=== PATIENT | male | born 1975 | race Caucasian/White ===

== ENCOUNTER 2018-06-01 19:23 | Emergency (ER) | payer BC, OTHER ==
[2018-06-01] MEDS ORDERED: TETANUS & DIPHTHERIA TOX,ADULT 0.5 ML VIAL ONE (20:04)
--- NOTE | 2018-06-01 20:27 | ER ---
Nurse's Notes [facility] Name: Kilo Aquino Age: 43 yrs Sex: Male : 1975 Arrival Date: 06/01/2018 Time: 19:28 Bed 2 Private MD: Diagnosis: Laceration without foreign body of right hand-5th finger shave injury Presentation: 06/01 19:50 Presenting complaint: Patient states: he was slicing potatoes and cut his R pinky aa1 finger on a mandolin. Minor partial amputation noted to pad of R pinky finger. CMS intact. Transition of care: patient was not received from another setting of care. Onset of symptoms was June 01, 2018. Risk Assessment: Do you want to hurt yourself or someone else? Patient reports no desire to harm self or others. Initial Sepsis Screen: Does the patient meet any 2 criteria? No. Patient's initial sepsis screen is negative. Does the patient have a suspected source of infection? Yes: Skin breakdown/wound. Care prior to arrival: None. 19:50 Method Of Arrival: Ambulatory aa1 19:50 Acuity: IRINA 4 aa1 Historical: - Allergies: 19:53 No Known Allergies; aa1 - Home Meds: 19:53 None [Active]; aa1 - PMHx: 19:53 None; aa1 - PSHx: 19:53 None; aa1 - Immunization history:: Last tetanus immunization: unknown. - Social history:: Smoking status: Patient/guardian denies using tobacco. - Ebola Screening: : No symptoms or risks identified at this time. - Family history:: not pertinent. Screenin:50 Abuse screen: Denies threats or abuse. Denies injuries from another. Nutritional aa1 screening: No deficits noted. Tuberculosis screening: No symptoms or risk factors identified. Fall Risk None identified. Assessment: 19:50 General: Appears in no apparent distress. comfortable, Behavior is calm, cooperative, aa1 appropriate for age. Pain: Complains of pain in right little finger. Neuro: Level of Consciousness is awake, alert, obeys commands, Oriented to person, place, time, situation, Moves all extremities. Full function. Respiratory: Airway is patent Respiratory effort is even, unlabored, Respiratory pattern is regular, symmetrical. GI: No signs and/or symptoms were reported involving the gastrointestinal system. : No signs and/or symptoms were reported regarding the genitourinary system. EENT: No signs and/or symptoms were reported regarding the EENT system. Derm: Skin is intact, is healthy with good turgor, Skin is pink, warm \T\ dry. Musculoskeletal: Circulation, motion, and sensation intact. Capillary refill < 3 seconds, Range of motion: intact in all extremities. Injury Description: Amputation sustained to palmar aspect of distal phalanx of right little finger is partial, very minimal amount of tissue involvement was sustained 1-2 hours ago. Vital Signs: 19:53 BP 134 / 92; Pulse 98; Resp 18; Temp 97.6; Pulse Ox 99% on R/A; Weight 78.93 kg; Height aa1 5 ft. 11 in. (180.34 cm); Pain 2/10; 19:53 Body Mass Index 24.27 (78.93 kg, 180.34 cm) aa1 ED Course: 19:28 Patient arrived in ED. am2 19:43 Donovan Anglin MD is Attending Physician. [facility] 19:48 Patricia Marcano RN is Primary Nurse. aa1 19:50 Arm band placed on right wrist. Patient placed in an exam room, on a stretcher. aa1 19:50 Patient has correct armband on for positive identification. Bed in low position. Call aa1 light in reach. Pulse ox on. NIBP on. 19:52 Triage completed. aa1 20:22 No provider procedures requiring assistance completed. Patient did not have IV access aa1 during this emergency room visit. Dressings: Adaptic X 1; right little finger Tube gauze X 1; right little finger. Administered Medications: 20:08 Drug: Tetanus-Diphtheria Toxoid Adult 0.5 ml {Non Clinical Advisor: [place]. Exp: aa1 05/30/2020. Lot #: [id number]. } Route: IM; Site: left deltoid; 20:22 Drug: Neosporin Ointment 1 application Route: Topical; Site: right hand; aa1 20:52 Drug: Motrin 400 mg Route: PO; Outcome: 20:26 Discharge ordered by . [facility] 20:52 Patient left the ED. aj Signatures: Patricia Marcano RN RN aa1 Trang Calderon RN RN aj Anderson, Corey, MD MD cha Moreno, Amanda am2
--- NOTE | 2018-06-01 20:27 | EDPHYS ---
Physician Documentation [facility] Name: Kilo Aquino Age: 43 yrs Sex: Male : 1975 Arrival Date: 06/01/2018 Time: 19:28 Bed 2 Private MD: ED Physician Donovan Anglin HPI: 06/01 20:19 This 43 yrs old Male presents to ER via Ambulatory with complaints of Finger noy Injury. 20:19 Trauma demographics: County: The injury occurred in [place]. 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 Associated injuries: The patient sustained palmar aspect of distal phalanx of right little finger, painful injury. Historical: - Allergies: 19:53 No Known Allergies; aa1 - Home Meds: 19:53 None [Active]; aa1 - PMHx: 19:53 None; aa1 - PSHx: 19:53 None; aa1 - Immunization history:: Last tetanus immunization: unknown. - Social history:: Smoking status: Patient/guardian denies using tobacco. - Ebola Screening: : No symptoms or risks identified at this time. - Family history:: not pertinent. ROS: 20:19 Constitutional: Negative for fever, chills, and weight loss, Eyes: Negative for injury, noy pain, redness, and discharge, ENT: Negative for injury, pain, and discharge, Neck: Negative for injury, pain, and swelling, Cardiovascular: Negative for chest pain, palpitations, and edema, Respiratory: Negative for shortness of breath, cough, wheezing, and pleuritic chest pain, Abdomen/GI: Negative for abdominal pain, nausea, vomiting, diarrhea, and constipation, Back: Negative for injury and pain, : Negative for injury, bleeding, discharge, and swelling, Skin: Negative for injury, rash, and discoloration, Neuro: Negative for headache, weakness, numbness, tingling, and seizure, Psych: Negative for depression, anxiety, suicide ideation, homicidal ideation, and hallucinations, Allergy/Immunology: Negative for hives, rash, and allergies, Endocrine: Negative for neck swelling, polydipsia, polyuria, polyphagia, and marked weight changes. 20:19 MS/extremity: Positive for laceration, of the palmar aspect of distal phalanx of right little finger. Exam: 20:19 Constitutional: This is a well developed, well nourished patient who is awake, alert, noy and in no acute distress. Head/Face: Normocephalic, atraumatic. Eyes: Pupils equal round and reactive to light, extra-ocular motions intact. Lids and lashes normal. Conjunctiva and sclera are non-icteric and not injected. Cornea within normal limits. Periorbital areas with no swelling, redness, or edema. ENT: Nares patent. No nasal discharge, no septal abnormalities noted. Tympanic membranes are normal and external auditory canals are clear. Oropharynx with no redness, swelling, or masses, exudates, or evidence of obstruction, uvula midline. Mucous membranes moist. Neck: Trachea midline, no thyromegaly or masses palpated, and no cervical lymphadenopathy. Supple, full range of motion without nuchal rigidity, or vertebral point tenderness. No Meningismus. Chest/axilla: Normal chest wall appearance and motion. Nontender with no deformity. No lesions are appreciated. Cardiovascular: Regular rate and rhythm with a normal S1 and S2. No gallops, murmurs, or rubs. Normal PMI, no JVD. No pulse deficits. Respiratory: Lungs have equal breath sounds bilaterally, clear to auscultation and percussion. No rales, rhonchi or wheezes noted. No increased work of breathing, no retractions or nasal flaring. Abdomen/GI: Soft, non-tender, with normal bowel sounds. No distension or tympany. No guarding or rebound. No evidence of tenderness throughout. Back: No spinal tenderness. No costovertebral tenderness. Full range of motion. Skin: Warm, dry with normal turgor. Normal color with no rashes, no lesions, and no evidence of cellulitis. Neuro: Awake and alert, GCS 15, oriented to person, place, time, and situation. Cranial nerves II-XII grossly intact. Motor strength 5/5 in all extremities. Sensory grossly intact. Cerebellar exam normal. Normal gait. Psych: Awake, alert, with orientation to person, place and time. Behavior, mood, and affect are within normal limits. 20:19 Musculoskeletal/extremity: Extremities: noted in the palmar aspect of distal phalanx of right little finger: laceration, pain. Vital Signs: 19:53 BP 134 / 92; Pulse 98; Resp 18; Temp 97.6; Pulse Ox 99% on R/A; Weight 78.93 kg; Height aa1 5 ft. 11 in. (180.34 cm); Pain 2/10; 19:53 Body Mass Index 24.27 (78.93 kg, 180.34 cm) aa Laceration: 20:19 Wound Repair of 05cm ( 2.0in ) subcutaneous laceration to right little finger. thin noy shave injury. Distal neuro/vascular/tendon intact. Anesthesia: Local anesthetic administered with 0 mls of none. Wound prep: Simple cleansing by me. Skin closed with none zero using none. Dressed with Neosporin, pressure dressing, non-adherent dressing. Patient tolerated well. [facility]: 19:44 Patient medically screened. [facility] 20:19 Data reviewed: vital signs, nurses notes. [facility] 06/01 20:19 Order name: Wound dressing; Complete Time: 20:22 [facility] Administered Medications: 20:08 Drug: Tetanus-Diphtheria Toxoid Adult 0.5 ml {Truck Repair Supervisor: Gertrude. Exp: aa1 05/30/2020. Lot #: [id number]. } Route: IM; Site: left deltoid; 20:22 Drug: Neosporin Ointment 1 application Route: Topical; Site: right hand; aa 20:52 Drug: Motrin 400 mg Route: PO; aj Disposition: 06/01/18 20:26 Discharged to Home. Impression: Laceration without foreign body of right hand - 5th finger shave injury. - Condition is Stable. - Discharge Instructions: Laceration Care, Adult, Laceration Care, Adult, [id number]. - Prescriptions for Tylenol- Codeine #3 300-30 mg Oral Tablet - take 2 tablets by ORAL route every 6 hours As needed; 20 tablet. - Medication Reconciliation Form, Thank You Letter, Antibiotic Education, Prescription Opioid Use form. - Follow up: Private Physician; When: 2 - 3 days; Reason: Recheck today's complaints, Continuance of care, Re-evaluation by your physician. - Problem is new. - Symptoms have improved. Signatures: Patricia Marcano RN RN aa1 Trang Calderon RN RN Donovan White MD MD [facility] Corrections: (The following items were deleted from the chart) 20:52 20:26 06/01/2018 20:26 Discharged to Home. Impression: Laceration without foreign body aj of right hand - 5th finger shave injury. Condition is Stable. Forms are Medication Reconciliation Form, Thank You Letter, Antibiotic Education, Prescription Opioid Use. Follow up: Private Physician; When: 2 - 3 days; Reason: Recheck today's complaints, Continuance of care, Re-evaluation by your physician. Problem is new. Symptoms have improved. noy
[2018-06-01] MEDS ORDERED: IBUPROFEN 400 MG TAB ONE (20:35)
== END 2018-06-01 20:52 | disposition home or self-care (01) ==
LOC: ER 19:23
PROC: 0JQJ0ZZ Repair Right Hand Subcutaneous Tissue and Fascia, Open Approach (ICD-10-PCS; principal; 2018-06-01)
DX: S61.216A Laceration without foreign body of right little finger without damage to nail, initial encounter (principal); W27.8XXA Contact with other nonpowered hand tool, initial encounter; Y93.9 Activity, unspecified; Y92.89 Other specified places as the place of occurrence of the external cause; Z23 Encounter for immunization
CPT/HCPCS: 90714; 99283

== ENCOUNTER 2020-09-24 00:55 | Observation (INO) | payer OTHER, SELFPAY ==
[2020-09-24] MEDS ORDERED: ONDANSETRON 4 MG/2 ML VIAL IV PRN (01:59)
[2020-09-24] MEDS ORDERED: ACETAMINOPHEN 500 MG TAB PO PRN (01:59)
--- NOTE | 2020-09-24 02:07 | P.HP ---
Certification for Inpatient Patient admitted to: Observation With expected LOS: <2 Midnights Patient will require the following post-hospital care: None Practitioner: I am a practitioner with admitting privileges, knowledge of patient current condition, hospital course, and medical plan of care. Services: Services provided to patient in accordance with Admission requirements found in Title 42 Section 412.3 of the Code of Federal Regulations <Trey Gutierrez - Last Filed: 09/24/20 02:03> Patient History Date of Service: 09/24/20 Primary Care Provider: Dr. Kimbrough Reason for admission: Chest pain, palpitations History of Present Illness: 45-year-old male with no significant past medical history when 2 free standing emergency department for palpitations and chest pain. Patient reported that he has had palpitations multiple times over the course of the last 3 days, reports that at home he has a pulse oximeter and would check his heart rate when he was having the palpitations finding it to be in the range of 140-160. Patient does report some associated chest tightness, lightheadedness. Patient without previous cardiac evaluation, no family history of heart disease. Patient denies use of recreational drugs. When I saw the patient in the exam room he was awake, alert, oriented x3, still reporting some mild chest discomfort. - Past Medical/Surgical History -: None -: none Psychosocial/ Personal History: Patient lives with family - Family History Brother -: Stroke - Social History Smoking Status: Never smoker Alcohol use: No CD- Drugs: No Caffeine use: Yes Place of Residence: Home <Trey Gutierrez - Last Filed: 09/24/20 02:03> Date of Service: 09/26/20 <Albert Hector - Last Filed: 09/26/20 20:30> Allergies No Known Allergies Allergy (Unverified 09/24/20 01:42) Review of Systems 10-point ROS is otherwise unremarkable Cardiovascular: Chest Pain, Palpitations, Light Headedness, As per HPI <Trey Gutierrez - Last Filed: 09/24/20 02:03> Physical Examination - Physical Exam General: Alert, In no apparent distress HEENT: Atraumatic, PERRLA, Mucous membr. moist/pink Neck: Supple, 2+ carotid pulse no bruit, No LAD Respiratory: Clear to auscultation bilaterally, Normal air movement Cardiovascular: Regular rate/rhythm, Normal S1 S2 Capillary refill: <2 Seconds Gastrointestinal: Non-distended Musculoskeletal: No tenderness Integumentary: No rashes Neurological: Normal speech, Normal strength at 5/5 x4 extr, Normal tone, Normal affect <Trey Gutierrez - Last Filed: 09/24/20 02:03> Assessment and Plan - Plan Assessment Palpitations with associated chest pain Plan Palpitations with associated chest pain: Monitor on telemetry, cardiology consult in place. Morning labs with thyroid panel, troponin, obtain urine drug screen. DVT prophylaxis with Lovenox 40 mg subcutaneous once daily. Appreciate further input from cardiology. Discharge Plan: Home Plan to discharge in: 24 Hours - Advance Directives Does patient have a Living Will: No Does patient have a Durable POA for Healthcare: No - Code Status/Comfort Care Code Status Assessed: Yes (Full code) Critical Care: No Time Spent Managing Pts Care (In Minutes): 55 <Trey Gutierrez - Last Filed: 09/24/20 02:03> - Plan Agree with plan of care as noted above by Trey Gutierrez. possible anxiety component, pt reports stress in life with work, anniversary of fathers monitor telemetry and f/u workup <Albert Hector - Last Filed: 09/26/20 20:30>
[2020-09-24] MEDS ORDERED: MELATONIN 5 MG TABLET PO ONE (02:23)
[2020-09-24 03:04] VITALS: O2SAT 97; BMI 26.4
[2020-09-24 05:55] LABS: BUN Blood Urea Nitrogen 11 mg/dL (7-18); Bicarbonate 28 mmol/L (21-32); Glucose Level 91 mg/dL (74-106); HDL Cholesterol 58 mg/dL (40-60); LDL Cholesterol, Calculated 58 (<130); Magnesium 2.2 mg/dL (1.8-2.4); Potassium 3.9 mmol/L (3.5-5.1); Sodium Level 141 mmol/L (136-145); Troponin I < 0.02 ng/mL (0.0-0.045)
[2020-09-24 06:00] LABS: Basophils % 0.7 % (0-1.3); MPV 8.7 fL (7.6-11.3); RBC Red Blood Cell Count 4.41 M/uL (4.33-5.43)
[2020-09-24] MEDS ORDERED: ASPIRIN EC 81 MG TAB PO SCH (09:00)
[2020-09-24] MEDS ORDERED: ENOXAPARIN 40 MG/0.4 ML SQ SCH (09:00)
[2020-09-24] MEDS ORDERED: POTASSIUM CL SA 10 MEQ TAB PO ONE (09:00)
[2020-09-24 10:10] VITALS: BP 124/82; TEMP 98.1
[2020-09-24 10:57] LABS: Barbiturates NEGATIVE (NEGATIVE); Benzodiazepines NEGATIVE (NEGATIVE); Cocaine NEGATIVE (NEGATIVE); METHAMPHETAM NEGATIVE (NEGATIVE); Methadone NEGATIVE (NEGATIVE); Opiates NEGATIVE (NEGATIVE); Phencyclidine NEGATIVE (NEGATIVE); THC Cannibis POSITIVE (NEGATIVE)
--- NOTE | 2020-09-25 14:00 | CON ---
Date of Consultation: 09/24/2020 Reason For Consultation: Palpitations. History Of Present Illness: A 45-year-old male with no significant medical history except anxiety chinmay stewart, presented with palpitations. He has been checking his heart rate using 1 of the watch monito rs and at 1 point, heart rate went up to 160 and then to 140 and then kept fluctuating and denies hav ing any active chest pain, but he felt very slightly lightheaded with those episodes. No history of atrial fibrillation, evaluated by bedside and he is asymptomatic. Past Medical History: None. Medications: None. Allergies: NONE. Family History: No premature coronary artery disease or cancer. Social History: Does not smoke or drink. Does not use any drugs. Review of Systems: All systems were reviewed and they were negative except mentioned in the HPI. Physical Examination: Vital Signs: Temperature was 98.4, pulse is 99, breathing at 18, blood pressure is 134/74. General: Pleasant young male, in no apparent distress. Head and Neck: Pupils are equal, reactive to light. Intact eye movements. No JVD. No cervical lym phadenopathy. Neck: Supple. Thyroid is not enlarged. Lungs: Clear to auscultation bilaterally. No rhonchi, rales, or crackles. No accessory muscle use. Heart: Regular rate and rhythm. No extra sounds. Abdomen: Soft, nontender. Bowel sounds positive. No organomegaly. No masses or hernia. No rigidi ty or rebound. Extremities: No clubbing, cyanosis. Intact pulses. Skin: No rashes. Neurologic: Alert, awake, oriented x3. No acute focal deficits appreciated. Lymph Nodes: No cervical or axillary lymphadenopathy. Investigations: Creatinine is 1. Troponin 0.02. TSH is 7, hemoglobin 13.6, WBC count 6.2, D-dimer is 288. Assessment And Recommendations: Sinus tachycardia. This could be inappropriate sinus tachycardia. We did a D-dimer and it is negative, which rules out pulmonary embolus. This also could be contribut ed to anxiety. At this point, I would recommend no further medications anxiety disorder. Plan for outpatient 1 week Holter monitor to further evaluate any arrhythmia. During this hospital stay, no arrhythmias detected. We were recommend also to obtain an echocardiogram, which can be done as an outpatient. From Cardiology standpoint, okay to discharge the patient home and follow up home within a week post discharge. Thank you for the consult. ANTONIA Voice ID: [id number] Report ID: [id number]
--- NOTE | 2020-10-03 19:30 | P.DS ---
Admission Date: 09/24/20 Discharge Date: 09/24/20 Primary Care Provider: Dr. Kimbrough Disposition: ROUTINE DISCHARGE Discharge Condition: GOOD Reason for Admission: Chest pain, palpitations Consultations: Cardiology - Dr. Bang Procedures: Problem List: Palpitations with associated chest pain Anxiety Brief History of Present Illness: 45-year-old male with no significant past medical history when 2 free standing emergency department for palpitations and chest pain. Patient reported that he has had palpitations multiple times over the course of the last 3 days, reports that at home he has a pulse oximeter and would check his heart rate when he was having the palpitations finding it to be in the range of 140-160. Patient does report some associated chest tightness, lightheadedness. Patient without previous cardiac evaluation, no family history of heart disease. Patient denies use of recreational drugs. When I saw the patient in the exam room he was awake, alert, oriented x3, still reporting some mild chest discomfort. Hospital Course: Troponins were trended and remained negative. D-dimer negative. He was monitored on telemetry and noted to have few minutes of sinus tachycardia. On questioning patient reported he was doing work related phone calls /emails at that time. He also reported this time of year reminds him when his father passed. Cardiology was consulted and recommended echocardiogram (obtained as outpatient), and possibly holter monitor. His palpitations and sinus tachycardia may be due to his anxiety. Anxiolytics were discussed such as zoloft/paxil, etc, however patient declined. He was advised to f/u with PCP in the next week, and to f/u with Cardiology as well. TSH and free T4 were checked and were consistent with a subclinical hypothyroid and advised to f/u with PCP for repeat later this year. He was discharged with low dose Toprol XL in the meantime. TSH: 7.0 Free T4: 1.12 Vital Signs/Physical Exam: Temp Pulse Resp BP Pulse Ox 98.1 F 81 18 124/82 97 09/24/20 08:00 09/24/20 08:00 09/24/20 08:00 09/24/20 08:00 09/24/20 08:00 General: Alert, In no apparent distress, Oriented x3 HEENT: Sclerae nonicteric Neck: Supple Respiratory: Clear to auscultation bilaterally, Normal air movement Cardiovascular: No edema, Regular rate/rhythm, No murmurs Gastrointestinal: Soft and benign, Non-distended Musculoskeletal: No tenderness Integumentary: No rashes Neurological: Normal speech, Normal affect Laboratory Data at Discharge: WBC 6.2 K/uL (4.3-10.9) 09/24/20 05:00 Hgb 13.6 g/dL (13.6-17.9) 09/24/20 05:00 Hct 40.0 % (39.6-49.0) 09/24/20 05:00 Plt Count 227 K/uL (152-406) 09/24/20 05:00 Sodium 141 mmol/L (136-145) 09/24/20 05:00 Potassium 3.9 mmol/L (3.5-5.1) 09/24/20 05:00 BUN 11 mg/dL (7-18) 09/24/20 05:00 Creatinine 1.00 mg/dL (0.55-1.3) 09/24/20 05:00 Glucose 91 mg/dL (74-106) 09/24/20 05:00 Magnesium 2.2 mg/dL (1.8-2.4) 09/24/20 05:00 Troponin I < 0.02 ng/mL (0.0-0.045) 09/24/20 11:15 Triglycerides 71 mg/dL (<150) 09/24/20 05:00 Cholesterol 130 mg/dL (<200) 09/24/20 05:00 HDL Cholesterol 58 mg/dL (40-60) 09/24/20 05:00 Cholesterol/HDL Ratio 2.24 09/24/20 05:00 Home Medications: Cetirizine HCl [Zyrtec] 10 mg PO DAILY PRN 09/24/20 Metoprolol Succinate [Toprol Xl*] 25 mg PO DAILY 30 Days #30 tab 09/24/20 Triamcinolone Acetonide [Nasacort] 16.9 ml NS DAILY PRN 09/24/20 New Medications: Metoprolol Succinate [Toprol Xl*] 25 mg PO DAILY 30 Days #30 tab Patient Discharge Instructions: Your heart rate was found to be in the 80s with very brief increases to 110-115, normal sinus rhythm. Your EKG and cardiac enzyme (troponin) were normal indicating no significant damage to your heart. You are discharged with Toprol XL 25mg daily for your heart rate. Follow up with Cardiology on Sunday - call to schedule appointment. They will set you up with a holter monitor (heart monitor) to further evaluate. Recommend following up withy our PCP to discuss options for anxiety/stress. Your TSH was noted to be slightly elevated at ~7, and your T4 was normal, indicating possible "subclinical hypothyroidism" that does not need treatment, but these tests should be repeated later this year - please check with your PCP. Diet: Regular Activity: Ad lidia Followup: Speedy Bang MD [ACTIVE - CAN ADMIT] - Time spent managing pt's care (in minutes): 40
== END 2020-09-24 16:46 | disposition home or self-care (01) ==
LOC: 2ND 00:55 → OBSVTOIN 08:37 → INTOOBSV 08:37
PROVIDERS: ADMIT Hospitalist; ATTEND Hospitalist
DX: R00.2 Palpitations (principal); R07.9 Chest pain, unspecified
CPT/HCPCS: 85025; 80048; 36415; 83735; 80061; 85379; 80307 ×8; 84443; 84484 ×2; 84439; J1650; G0379; G0378 ×2